=== PATIENT | female | born 2000 | race Two or more races ===

== ENCOUNTER 2019-12-23 21:04 | Emergency (ER) | payer MEDICAID ==
[~2019-12-23] VITALS: Ht 162.6 cm; Wt 52.2 kg
--- NOTE | 2019-12-23 21:13 | NUR ---
Patient to ER bed 8 to gown for evaluation. Side rails up. Report given to THEO BLACKWELL.
[2019-12-23 21:14] VITALS: BP_SYST 101
--- NOTE | 2019-12-23 21:25 | NUR ---
NILAY TO ASSUME CARE, RECEIVED AND IN ROOM, SITTING UP TALKING CLEARLY, RESP UNLABORED, SKIN WARM AND DRY. C/O DIZZINESS SINCE 1429 WITH EPISODE OF VOMITING PT STATED INCREASE IN DIZZINESS WITH LYING
[2019-12-23] MEDS ORDERED: MECLIZINE HCL 25 MG TABLET (ANITVERT) PO ONE (21:30)
--- NOTE | 2019-12-23 21:30 | NUR ---
DR ESCOTO IN TO ASSESS
--- NOTE | 2019-12-23 21:50 | NUR ---
UPDATE PROVIDED TO MOTHER , COMMUNICATED UNDERSTANDING. PT CALM, ALERT, UP AMBULATING STEADY, NO DYSPNEA, DENIES ANY COMPLAINTS, STATED FEELING BETTER
[2019-12-23 22:32] VITALS: BP_SYST 105
--- NOTE | 2019-12-23 22:35 | NUR ---
Patient given written and verbal discharge instructions and verbalizes understanding. ER MD discussed with patient the results and treatment provided. Patient in stable condition. ID arm band removed. Rx of ANTIVERT given. Patient educated on pain management and to follow up with PMD. Pain Scale 2/10 Opportunity for questions provided and answered. Medication side effect fact sheet provided.
== END 2019-12-23 22:32 | disposition home or self-care (01) ==
LOC: SED 21:04
DX: R42 Dizziness and giddiness (principal)
CPT/HCPCS: 81002; 81025; 93005; 99283; J8597

== ENCOUNTER → 2020-03-22 | Emergency (ER) | payer MEDICAID, SELFPAY ==
[~2020-03-22] VITALS: Ht 162.6 cm; Wt 49.9 kg
[2020-03-22 12:33] VITALS: BP_SYST 134
--- NOTE | 2020-03-22 12:38 | NUR ---
Patient triaged and placed in waiting room. VSS and patient appears in no acute distress at this time. Awaiting available bed, and MD notified of need for MSE.
[2020-03-22 13:00] VITALS: BP_SYST 134
--- NOTE | 2020-03-22 13:00 | NUR ---
Patient left without being seen.
== END | disposition still patient (30) ==
LOC: SED 12:26
DX: J02.9 Acute pharyngitis, unspecified (principal); M79.18 Myalgia, other site; R53.83 Other fatigue; Z53.21 Procedure and treatment not carried out due to patient leaving prior to being seen by health care provider